=== PATIENT | male | born 1950 | race Caucasian/White ===

== ENCOUNTER 2016-11-09 12:20 | Outpatient (CLI) | payer MEDICARE, BC ==
--- NOTE | 2016-11-09 13:17 | XRAY Report ---
TWO VIEW CHEST: 11/09/2016 CLINICAL INDICATION: End-stage renal disease, pre-travel evaluation. COMPARISON: 10/03/2007. FINDINGS: Frontal and lateral views of the chest demonstrate a normal cardiac silhouette. The right jugular dialysis catheter terminates in the proximal right atrium. The lungs are clear. No effusion o r pneumothorax is present. IMPRESSION: NORMAL CHEST. NO EVIDENCE OF ACTIVE TUBERCULOSIS. JOB #: [id number] EXT JOB #:[id number]
== END 2016-11-09 12:21 | disposition home or self-care (01) ==
LOC: DI 12:20
PROVIDERS: ATTEND Internal Medicine Nephrology
DX: Z11.1 Encounter for screening for respiratory tuberculosis (principal); N18.6 End stage renal disease
CPT/HCPCS: 71020